=== PATIENT | male | born 1955 | race Caucasian/White ===

== ENCOUNTER 2016-08-10 11:00 | Day surgery (SDC) | payer OTHER, MEDICAID ==
[~2016-08-10] VITALS: Ht 172.7 cm; Wt 70.3 kg
[2016-08-10] MEDS ORDERED: IOHEXOL 350 MG/ML 100ML IJ ONE ×2 (13:21→15:33)
[2016-08-10] MEDS ORDERED: LIDOCAINE 2%HCL (LOCAL ANESTH.) INJ 20ML MDV ONE (13:21)
[2016-08-10] MEDS ORDERED: MIDAZOLAM HCL 1MG/1ML-2 ML VIAL ONE (15:27)
[2016-08-10] MEDS ORDERED: ANGIOMAX 250 MG VIAL IV ONE (15:27)
[2016-08-10] MEDS ORDERED: fentaNYL CITRATE 100 MCG/2 ML VL ONE (15:27)
[2016-08-10] MEDS ORDERED: SODIUM CHL 0.9% 0 ML ONE (15:27)
[2016-08-10] MEDS ORDERED: HEPARIN 1,000 UNITS/ml 1ML VIAL ONE (15:45)
[2016-08-10] MEDS ORDERED: SODIUM CHLORIDE 0.9% 1,000 ML IV SCH (17:55)
== END 2016-08-10 18:45 | disposition home or self-care (01) ==
LOC: CATH 11:00
PROVIDERS: ATTEND Internal Medicine Cardiovascular Disease
DX: I70.213 Atherosclerosis of native arteries of extremities with intermittent claudication, bilateral legs (principal); J44.9 Chronic obstructive pulmonary disease, unspecified; F17.200 Nicotine dependence, unspecified, uncomplicated; E11.9 Type 2 diabetes mellitus without complications; I21.3 ST elevation (STEMI) myocardial infarction of unspecified site; T82.897A Other specified complication of cardiac prosthetic devices, implants and grafts, initial encounter; E78.00 Pure hypercholesterolemia, unspecified; I10 Essential (primary) hypertension
CPT/HCPCS: 36247; C1760; C1769; C1887; C1894; J1644; J2250; J3010; J7030; Q9967; 99152